=== PATIENT | female | born 1940 | race Caucasian/White ===

== ENCOUNTER 2024-09-05 15:29 | Emergency (ER) | payer OTHER, SELFPAY ==
[2024-09-05 15:46] VITALS: BP 159/77
[2024-09-05 16:08] LABS: % Basophils 1.3 % (0-2); % Eosinophils 1.7 % (0-6); % Immature Granulocytes 0.8 % (0-0.5); % Lymphocytes 17.1 % (20.5-51.1); % Monocytes 6.7 % (1.7-9.3); % Neutrophils 72.4 % (42.2-75.2); Absolute Basophils 0.1 10^3/uL (0-0.2); Absolute Eosinophils 0.1 10^3/uL (0-0.7); Absolute Immature Granulocytes 0.1 10^3/uL (0-0.05); Absolute Lymphocytes 1.3 10^3/uL (1.2-3.4); Absolute Monocytes 0.5 10^3/uL (0.1-0.6); Absolute Neutrophils 5.5 10^3/uL (1.4-6.5); Hematocrit 38.5 % (37.0-47.0); Mean Corp Hgb Conc. 33.8 g/dL (33.0-37.0); Mean Corpuscular Hgb 29.8 pg (27.0-31.0); Mean Corpuscular Volume 88.3 fL (81.0-99.0); Mean Platelet Volume 8.9 fL (7.4-10.4); Nucleated Red Blood Cells % 0 %; Platelet Count 306 10^3/uL (130-400); Red Blood Cell Count 4.36 10^6/uL (4.20-5.40); Red Cell Dist. Width 14.4 % (11.5-14.5); White Blood Cell Count 7.6 10^3/uL (4.8-10.8)
[2024-09-05 16:28] LABS: Troponin I 0.014 ng/ml
[2024-09-05 17:41] VITALS: BMI 20.5
--- NOTE | 2024-09-05 17:58 | ED.GENMED ---
History of Present Illness
<ARNULFO Foote - Last Filed: 09/07/24 10:59>
General
Chief Complaint: Chest Pain
Source: patient
Exam Limitations: none
Time Seen by Provider: 09/05/24 17:47
Nursing documentation reviewed up to this point in time: agreed with
History of Present Illness
History of Present Illness:
Patient is an 84-year-old female who presents to the ER for evaluation. She started with pain in her right back/right side August 23. She felt it go into her chest. She went to [facility] at the time and had 2 cardiac troponins and had a
CAT scan of her chest which was all negative. She did follow-up with a family doctor since then but has had continued back pain. She has been using ice heat and Tylenol without relief. She reports pain moves throughout her right side of her back
left side of her back flank area upper abdominal area. She does not however feel like this is reflux. She denies any nausea vomiting. She has not been eating a lot because of it has been losing weight. She denies shortness of breath. She does
at times feel it in her chest.
<Jose Green DO - Last Filed: 09/05/24 22:47>
History of Present Illness
History of Present Illness:
Patient is an 84-year-old female who presents to the ER for evaluation. She started with pain in her right back/right side August 23. She felt it go into her chest. She went to [facility] at the time and had 2 cardiac troponins and had a
CAT scan of her chest which was all negative. She did follow-up with a family doctor since then but has had continued back pain. She has been using ice heat and Tylenol without relief. She reports pain moves throughout her right side of her back
left side of her back flank area upper abdominal area. She does not however feel like this is reflux. She denies any nausea vomiting. She has not been eating a lot because of it has been losing weight. She denies shortness of breath. She does
at times feel it in her chest.
Review of Systems
<ARNULFO Foote - Last Filed: 09/07/24 10:59>
Review of Systems
Allergies reviewed?: Yes
All Other Systems: ROS reviewed and negative except as documented in HPI and ROS
Constitutional: Reports no symptoms
Respiratory: Reports no symptoms
Cardiac: Reports no symptoms
ABD/GI: Reports abdominal pain (at times upper abd pain ); Denies nausea or vomiting
: Reports flank pain
Musculoskeletal: Reports back pain (pain in middle /upper back )
Skin: Reports no symptoms
Neurological: Reports no symptoms
Hematologic/Lymphatic: Reports no symptoms
Psychiatric: Reports no symptoms
Phy Exam
<ARNULFO Foote - Last Filed: 09/07/24 10:59>
General Physical Exam
General Presentation: no apparent distress
General age: appears stated age
General Skin: warm and dry
General Habitus: normal and elderly
General Mental: alert
General Hydration: appears well hydrated
Cardiovascular Exam
Cardiovascular Exam: regular rate/rhythm, no murmur and normal peripheral pulses
Pulmonary Exam
Pulmonary Exam: lungs clear and no respiratory distress
Gastrointestinal Exam
Gastrointestinal Exam: non tender and soft
Neurological Exam
Neurological Exam: alert and oriented x3
Musculoskeletal Exam
Musculoskeletal Exam: full ROM
Skin Exam
Skin Exam: normal color and warm/dry
Psychiatric Exam
Psychiatric Exam: normal mood/affect
Scores
<ARNULFO Foote - Last Filed: 09/07/24 10:59>
Heart Score for Chest Pain Patients
STEMI patient?: Not applicable
Course
<ARNULFO Foote - Last Filed: 09/07/24 10:59>
Orders/Labs/Results
Orders:
Orders
09/05/24 15:34
Electrocardiogram (*1) Urgent
Reason for Study: Chest Pain
EKG- Treatment ONCE
09/05/24 15:47
CXR2 [CR Chest - 2 Views ] Urgent
Comment:
Reason For Exam: upper back discomfort
09/05/24 15:53
Complete Blood Count/With Diff Urgent
Troponin I Urgent
09/05/24 17:42
Comprehensive Metabolic Panel Urgent
09/05/24 18:50
CT Abd/pel W Iv And Oral Contr Urgent
Comment:
Reason For Exam: pain
Iohexol [Omnipaque] See Protocol PO NOW STA
09/05/24 18:53
0.9% Sodium Chloride 1000 ml [Nss] 1,000 ml IV BOLUS
Abnormal Lab Results
09/05/24 09/05/24
15:53 17:42
Abs Immat Gran (auto) 0.1 H 10^3/uL
(0-0.05)
Immature Gran % 0.8 H %
(0-0.5)
Lymphocytes % 17.1 L %
(20.5-51.1)
Glucose 101 H mg/dl
(70-99)
AST 38 H U/L
(14-36)
ALT 36 H U/L
(0-35)
09/05/24 15:53
09/05/24 17:42
Vital Signs
Initial and Last Documented VS:
Initial Vital Signs
Temp Pulse Resp Pulse Ox
98.7 F 67 16 98
09/05/24 15:40 09/05/24 15:40 09/05/24 15:40 09/05/24 15:40
Last Documented Vital Signs
Temp Pulse Resp BP Pulse Ox
98.7 F 57 19 154/54 96
09/05/24 15:40 09/05/24 21:15 09/05/24 21:15 09/05/24 20:00 09/05/24 21:15
<Jose Green, DO - Last Filed: 09/05/24 22:47>
Orders/Labs/Results
Orders:
Orders
09/05/24 15:34
Electrocardiogram (*1) Urgent
Reason for Study: Chest Pain
EKG- Treatment ONCE
09/05/24 15:47
CXR2 [CR Chest - 2 Views ] Urgent
Comment:
Reason For Exam: upper back discomfort
09/05/24 15:53
Complete Blood Count/With Diff Urgent
Troponin I Urgent
09/05/24 17:42
Comprehensive Metabolic Panel Urgent
09/05/24 18:50
CT Abd/pel W Iv And Oral Contr Urgent
Comment:
Reason For Exam: pain
Iohexol [Omnipaque] See Protocol PO NOW STA
09/05/24 18:53
0.9% Sodium Chloride 1000 ml [Nss] 1,000 ml IV BOLUS
Abnormal Lab Results
09/05/24 09/05/24
15:53 17:42
Abs Immat Gran (auto) 0.1 H 10^3/uL
(0-0.05)
Immature Gran % 0.8 H %
(0-0.5)
Lymphocytes % 17.1 L %
(20.5-51.1)
Glucose 101 H mg/dl
(70-99)
AST 38 H U/L
(14-36)
ALT 36 H U/L
(0-35)
09/05/24 15:53
09/05/24 17:42
Vital Signs
Initial and Last Documented VS:
Initial Vital Signs
Temp Pulse Resp Pulse Ox
98.7 F 67 16 98
09/05/24 15:40 09/05/24 15:40 09/05/24 15:40 09/05/24 15:40
Last Documented Vital Signs
Temp Pulse Resp BP Pulse Ox
98.7 F 57 19 154/54 96
09/05/24 15:40 09/05/24 21:15 09/05/24 21:15 09/05/24 20:00 09/05/24 21:15
<ARNULFO Foote - Last Filed: 09/07/24 10:59>
MDM/Problems Addressed
MDM/Problems Addressed:
Patient is an 84-year female who presents with pain in her back. She has had intermittent pain in her which she reports it moves around since July. She was seen at [facility] and had a full workup including cardiac workup and CAT scan of the
chest which was normal. They considered possible GI cause. Patient does not feel that this is reflux he has no history of reflux. She has been taking Tylenol which is not relieving her symptoms. She complains of pain throughout the back that is
constant but moves to different areas. Today she also complains of some flank pain. Patient presents awake alert no acute distress denies any shortness of breath she has nonhypoxic nontachypneic afebrile normal white count stable hemoglobin with
normal chemistries. On exam patient is nontender chest x-ray was done which does not show osteoporotic insufficiency fracture of the mid upper thoracic spine with loss of vertebral body height however with complaints of nonspecific back pain into
the abdomen will also order CT scan. CAT scan pending at this time
CAre of patient transferred to DR Green
<ARNULFO Foote - Last Filed: 09/07/24 10:59>
*Radiology
Radiology exam reviewed: radiology read reviewed
*Pulse Oximetry
Patient hypoxic: no
*EKG
Heart Rate: 58
Rate: bradycardiac
*Critical Care Note
Total Time (30-74mins, 75-104mins- exclusive of procedures): Not Applicable
ED Attending Note
<ARNULFO Foote - Last Filed: 09/07/24 10:59>
-
Portions of this chart may have been created with voice recognition software.� Occasional wrong word or��sound alike� substitutions may have occurred due to the inherent limitations of voice recognition software.
<Jose Green DO - Last Filed: 09/05/24 22:47>
ED Attending Note
Patient seen and examined by attending physician: Yes
I performed the substantive portion of visit, reviewed & personally made and approve the management plan that is documented in note by myself or ELIOT.: Yes
I performed a history and physical exam of patient and discussed management with resident, I reviewed resident's note and agree with documented findings and plan of care.: Yes
ED Attending Note:
I evaluated patient at bedside. CT imaging of the abdomen pelvis with oral and IV contrast relatively unremarkable. I did inform the patient of the findings noted by the radiologist but I do not feel that any of these findings would explain her
symptoms however we did talk about the possibility of constipation. She has been taking senna. I recommended that she also adds MiraLAX. I also told her about the stenosis in the iliacs as well. She is already taking Tylenol and I recommend
against NSAIDs giving her a and esophagitis. We talked about perhaps trying a narcotic but we ultimately agreed it would be best to hold off on narcotics. The patient has palpable DP pulses bilateral. She appears fairly comfortable at time of
discharge. At 10:45 PM just prior to charge, family now would like to try low-dose of something to help with pain. Will give 25 mg strength tramadol�sent to her pharmacy at [facility].
Discharge Plan
Departure
Patient Disposition: Home (Routine Discharge)
Date of Disposition: 09/05/24
Time of Disposition: 22:19
Patient with high blood pressure during this ER visit?: Yes
Condition: Fair
Covid-19: Not Applicable
Discharge Problem:
Fracture of thoracic vertebra
Instructions: Abdominal Pain
Prescriptions:
New
tramadol 25 mg tablet
25 mg PO Q8H PRN (Reason: pain) Qty: 15 0RF
Referrals:
Rafa Andrade MD [Active] -
Juan Pablo Avila MD [Family Provider] -
Benji Regalado MD [Active] - Follow up in 2-3 days
Nano Camargo DO [Active] - Follow up in 1 week
Activity Restrictions/Additional Instructions:
As discussed your chest x-ray does show a superior endplate fracture of a mid to upper thoracic vertebral body in the thoracic region from osteoporosis. Follow-up with orthopedics. Tylenol would still be safest for pain. The CAT scan of the
abdomen pelvis did show a moderate amount of constipation which may or may not be contributing to some of your symptoms. I recommend taking [id number] MiraLAX twice daily until you have better bowel movements. It was also noted that there is
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 I recommend that you consider following up with a vascular surgeon for this but I do not feel that this is the cause of
your pain. You do have good pulses that I can palpate in both feet. Although gallstone is noted, there is no sign of gallbladder infection. I also recommend you follow-up with GI as well.
Interventions
Interventions:
*Risk Screen - Suicide Last Done: 09/05/24 15:40
*General Assessment Last Done: 09/05/24 22:59
*Neglect/Abuse Screening Last Done: 09/05/24 15:40
ED- Fall Risk Assessment Last Done: 09/05/24 22:59
*ED COVID-19 Vaccine History Last Done: 09/05/24 22:59
*Nursing Disposition Last Done: 09/05/24 22:59
ED- Cardiac Assessment Last Done: 09/05/24 17:45
Discharge Date and Time
Discharge Date/Time: 09/05/24 23:02
Print Language: WOLOF
[2024-09-05 18:00] VITALS: BP 149/64
[2024-09-05 18:10] LABS: ALT (SGPT) 36 U/L (0-35); AST (SGOT) 38 U/L (14-36); Albumin 4.6 g/dl (3.5-5.0); Alkaline Phosphatase 92 U/L (38-126); Blood Urea Nitrogen 13 mg/dl (7-17); Calcium 9.5 mg/dl (8.4-10.2); Carbon Dioxide 25 mmol/L (22-30); Chloride 101 mmol/L (98-107); Estimated Creatinine Clearance 39 ml/min; Glucose 101 mg/dl (70-99); Potassium 4.4 mmol/L (3.5-5.1); Sodium 140 mmol/L (135-145); Total Bilirubin 0.8 mg/dl (0.2-1.3); Total Protein 7.1 g/dl (6.3-8.2); eGFR 54.87
[2024-09-05 19:00] VITALS: BP 147/62
--- NOTE | 2024-09-05 19:15 | EDRN ---
Report received, introduced myself to patient and started them drinking for CT, patient tolerating oral contrast and is comfortable with family at bedside.
[2024-09-05] MEDS: OMNIPAQUE 50 ML PO (19:18)
[2024-09-05] MEDS: NSS 1000 IV (19:19)
[2024-09-05 20:00] VITALS: BP 154/54
== END 2024-09-05 23:02 | disposition home or self-care (01) ==
LOC: EMR 15:29
PROVIDERS: Emergency Medicine; EMERGENCY PHYSICIAN Emergency Medicine; FAMILY PHYSICIAN Internal Medicine Geriatric Medicine
DX: M80.08XA Age-related osteoporosis with current pathological fracture, vertebra(e), initial encounter for fracture (principal); R07.89 Other chest pain; I70.0 Atherosclerosis of aorta; R10.9 Unspecified abdominal pain
CPT/HCPCS: 99285; 96360; 71046; 74177; 80053; 84484; 85025; 93005; Q9967